=== PATIENT | female | born 1980 | race Caucasian/White ===

== ENCOUNTER 2021-05-13 02:09 | Emergency (ER) | payer OTHER, SELFPAY ==
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
--- NOTE | 2021-05-13 04:00 | PC.NURSE ---
Call for help Contacted at this time. ISP at bedside with patient at time of initial assessment.
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
[2021-05-13 04:19] VITALS: BP 140/64; PULSE 99; RESP 18; TEMP 36.2; O2SAT 97
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
[2021-05-13 04:29] VITALS: BP 140/64; PULSE 99; RESP 18; TEMP 36.2; O2SAT 97
[2021-05-13] MEDS: ACETAMINOPHEN 500 MG TABLET 1000 MG PO (06:00)
[2021-05-13] MEDS: LIDOCAINE HCL 1% LOCAL INJ 20 ML VIAL (06:55)
[2021-05-13] MEDS: metroNIDAZOLE 250 MG TABLET 2000 MG PO (06:55)
[2021-05-13] MEDS: AZITHROMYCIN 250 MG TABLET 1000 MG PO (06:55)
[2021-05-13] MEDS: cefTRIAXone 250 MG VIAL IM (06:55)
== END 2021-05-13 07:23 | disposition home or self-care (01) ==
PROVIDERS: Emergency Provider Emergency Medicine
DX: T74.21XA Adult sexual abuse, confirmed, initial encounter (principal); S80.212A Abrasion, left knee, initial encounter; X58.XXXA Exposure to other specified factors, initial encounter
CPT/HCPCS: 96372; 99285; A9270; J0696